=== PATIENT | male | born 1980 | race Two or more races ===

== ENCOUNTER 2018-01-21 17:07 | Emergency (ER) | payer MEDICAID, OTHER ==
[~2018-01-21] VITALS: Ht 172.7 cm; Wt 88.5 kg
[2018-01-21 17:07] VITALS: BP 132/92
[2018-01-21] MEDS ORDERED: AZITHROMYCIN 250 MG TABLET ONE ×2 (18:59→19:37)
[2018-01-21] MEDS ORDERED: DEXAMETHASONE SOD PHOSPHATE 10 MG/ML VIAL ONE (18:59)
[2018-01-21] MEDS ORDERED: IBUPROFEN 400 MG TABLET ONE (19:00)
[2018-01-21] MEDS ORDERED: AZITHROMYCIN 250 MG TABLET PO ONE ×2 (19:00→20:00)
[2018-01-21] MEDS ORDERED: IBUPROFEN 400 MG TABLET PO ONE (19:00)
[2018-01-21] MEDS ORDERED: DEXAMETHASONE SOD PHOSPHATE 10 MG/ML VIAL IM ONE (19:00)
== END 2018-01-21 19:58 | disposition home or self-care (01) ==
LOC: ER 17:09
DX: J02.9 Acute pharyngitis, unspecified (principal); N50.9 Disorder of male genital organs, unspecified; F10.10 Alcohol abuse, uncomplicated; F17.200 Nicotine dependence, unspecified, uncomplicated; F14.10 Cocaine abuse, uncomplicated; Y90.9 Presence of alcohol in blood, level not specified; Z88.0 Allergy status to penicillin; Z60.2 Problems related to living alone
CPT/HCPCS: 36415; 86780; 87806; 96372; 99284; 99406; A4606; J1100; Z7610